=== PATIENT | male | born 1930 | race Caucasian/White ===

== ENCOUNTER 2018-06-17 18:28 | Emergency (ER) | payer MEDICARE, OTHER ==
[2018-06-17] MEDS ORDERED: cefTRIAXone\\ROCEPHIN 1 GM VIAL ONE (18:53)
== END 2018-06-17 19:30 | disposition home or self-care (01) ==
LOC: MADERS 18:28
DX: L03.116 Cellulitis of left lower limb (principal); E11.9 Type 2 diabetes mellitus without complications; J44.9 Chronic obstructive pulmonary disease, unspecified; E78.5 Hyperlipidemia, unspecified; I11.0 Hypertensive heart disease with heart failure; I50.9 Heart failure, unspecified; Z79.891 Long term (current) use of opiate analgesic; Z79.899 Other long term (current) drug therapy; Z79.82 Long term (current) use of aspirin
CPT/HCPCS: 96372; J0696; J2001